=== PATIENT | female | born 1995 | race Caucasian/White ===

== ENCOUNTER → 2016-06-02 | Outpatient (CLI) | payer BC ==
[2016-06-02 13:23] LABS: BASO % 0.3 % (0.0-1.0); EOS # 0.1 K/mm3 (0.0-0.50); EOS % 0.9 % (0.0-3.0); LARGE UNSTAINED CELL # 0.2 K/mm3 (0.0-0.4); LARGE UNSTAINED CELL % 1.6 % (0.0-4.0); LYMPH # 2.4 K/mm3 (1.5-6.5); LYMPH % 25.9 % (24.0-44.0); MEAN CORPUSCULAR HGB CONC 33.3 g/dl (32.0-36.5); MEAN CORPUSCULAR VOLUME 93.2 fl (80.0-96.0); MONO # 0.5 K/mm3 (0.0-0.8); MONO % 5.2 % (0.0-5.0); NEUTROPHILS # 6.2 K/mm3 (1.8-7.7); NEUTROPHILS % 66.1 % (36.0-66.0); PLATELET COUNT, AUTOMATED 216 k/mm3 (150-450); RED CELL DISTRIBUTION WIDTH 11.8 % (11.5-14.5); WHITE BLOOD COUNT 9.3 K/mm3 (4.0-10.0)
[2016-06-02 14:26] LABS: HIV SCRN NEGATIVE (NEGATIVE); HIV SCRN1 NEGATIVE (NEGATIVE)
[2016-06-02 14:27] LABS: CONTROL LINE INT CTR LINE PRESENT
[2016-06-03 11:02] LABS: HBsAg Prenatal NEGATIVE (NEGATIVE)
== END ==
LOC: M SMT 11:24
PROVIDERS: ATTEND Advanced Practice Midwife
DX: Z34.81 Encounter for supervision of other normal pregnancy, first trimester (principal)

== ENCOUNTER → 2016-07-06 | Outpatient (REF) | payer BC | LOC: M LAB REF 16:03 | PROVIDERS: ATTEND Advanced Practice Midwife | DX: Z34.82 Encounter for supervision of other normal pregnancy, second trimester (principal) ==

== ENCOUNTER → 2016-08-04 | Outpatient (CLI) | payer OTHER ==
--- NOTE | 2016-08-05 04:42 | REP ---
Clinical: Anatomical evaluation. Comparison: None . Findings: Examination demonstrates a single live intrauterine in breech presentation. motion is identified by technologist. Placenta is noted anteriorly and grade zero without evidence for placenta previa or abruption. Amniotic fluid volume is normal. Cervix measures 4.1 cm in length and appears closed. No evidence for nuchal cord. Gestational age by LMP 18 weeks 3 days with ISABELA 01/02/2017. Gestational age by current measurements 18 weeks 5 days with ISABELA 12/31/2016 . FHR equals 144 beats per minute. BPD 4.1 cm 18 weeks 4 days HC 15.6 cm 18 weeks 4 days AC 13.4 cm 18 weeks 6 days FL 3.0 cm 19 weeks 2 days HL 2.8 18 weeks 6 days HC/AC ratio 1.17 Estimated weight 267 grams ( 60th percentile). Anatomical assessment demonstrates normal structures including cranium, choroid plexus, cavum, cerebellum/posterior fossa, lungs, diaphragm, stomach, cord insertion, kidneys/bladder, spine, and extremities. Limited evaluation of the facial features, heart/ventricular outflow tract, and three-vessel cord due to positioning. Impression: Single live intrauterine in breech presentation demonstrating appropriate interval growth. Anatomical limitations as described above may warrant reevaluation and follow-up. Signed by Reji Tabares MD 08/05/2016 04:32 A
== END ==
LOC: M SMT 12:56
PROVIDERS: ATTEND Advanced Practice Midwife
DX: Z36 Encounter for antenatal screening of mother (principal); Z3A.18 18 weeks gestation of pregnancy

== ENCOUNTER → 2016-09-11 | Outpatient (CLI) | payer OTHER ==
--- NOTE | 2016-09-11 18:43 | REP ---
Obstetric sonography: History: Supervision of . Followup anatomy. Comparison sonography August 04, 2016. Findings: Scanning through the gravid uterus demonstrates a viable single intrauterine gestation in a cephalic lie. motion is observed and heart rate is recorded at 153 beats per minute. The placenta is anterior without evidence of previa, grade zero. Amniotic fluid is subjectively normal. Closed cervical length is 4.4 cm. No extrauterine abnormalities observed. There has been appropriate interval growth. Exam quality was inhibited by maternal body habitus and position. The following anatomic structures are identified today and felt to be unremarkable: cranium, choroid plexus, cavum, cerebellum and posterior fossa, face and profile, lungs, four-chamber heart with left ventricular outflow tract view, diaphragm, left-sided stomach, three-vessel cord, kidneys and bladder, spine, upper and lower extremities. Right ventricular cardiac outflow tract is not seen due to lie and maternal body habitus. Biometry chart: BPD 6.2 cm = 25 weeks 1 day HC 22.2 cm = 24 weeks 2 days AC 20.4 cm = 25 weeks 0 days FL 4.5 cm = 24 weeks 5 days HL 4.2 cm = 25 weeks 1 day HC/AC ratio normal 1.09. Cephalic index normal 0.79. Estimated weight 735 grams 1 pound 10 ounces, 72nd percentile for 23 weeks 6 days. Impression: Viable single intrauterine gestation at 24 weeks 3 days by today's composite sonographic criteria. Expected gestational age estimate based on prior sonography is 23 weeks 6 days. ISABELA by prior sonography January 02, 2017. There is appropriate interval growth. anatomic survey is complete with the exception of right ventricular cardiac outflow tract view. Signed by Austen Mckeon MD 09/11/2016 07:00 P
== END ==
LOC: M SMT 14:01
PROVIDERS: ATTEND Advanced Practice Midwife
DX: Z34.82 Encounter for supervision of other normal pregnancy, second trimester (principal); Z3A.24 24 weeks gestation of pregnancy

== ENCOUNTER → 2016-10-14 | Outpatient (CLI) | payer OTHER ==
[~2016-10-14] MED LIST: IBUP-1114 PO; PRENTAB7 PO; TUMS750C20 PO; TYLE500T78 PO
[2016-10-14 12:29] LABS: MEAN CORPUSCULAR HEMOGLOBIN 33.6 pg (27.0-33.0); MEAN CORPUSCULAR HGB CONC 34.5 g/dl (32.0-36.5); MEAN CORPUSCULAR VOLUME 97.4 fl (80.0-96.0); RED CELL DISTRIBUTION WIDTH 12.1 % (11.5-14.5); WHITE BLOOD COUNT 10.8 K/mm3 (4.0-10.0)
== END ==
LOC: M SMT 08:11
PROVIDERS: ATTEND Advanced Practice Midwife
DX: Z34.82 Encounter for supervision of other normal pregnancy, second trimester (principal)

== ENCOUNTER → 2016-10-28 | Outpatient (CLI) | payer OTHER ==
--- NOTE | 2016-10-28 10:12 | REP ---
Followup OB ultrasound: 10/28/2016. Clinical history: Supervision of , second trimester. Comparison: 09/11/2016, 08/04/2016. Findings: There is a single intrauterine gestation in vertex position with a closed 3.4 cm long cervix. There is an anterior grade 1 placenta without previa or abruption. Visually the amniotic fluid is normal and the index measurement is 8.3 which is below the normal range of 8.9 - 23.6. The largest fluid pocket 5.8 cm. biometry: BPD 8.1 cm = 32 weeks 3 days HC 28.9 cm = 31 weeks 6 days AC 27.3 cm = 31 weeks 3 days FL 6 cm = 31 weeks 3 days HL 5.2 cm = 30 weeks 3 days. This gives the average ultrasound age of 31 weeks 2 days with EDC 12/28/2016. By initial ultrasound she is 30 weeks 4 days with EDC 01/12. Estimated weight 1785 grams or 3 pounds 14 ounces. This is at 62 percentile for dating based on initial ultrasound. Normal interval growth. Mid cord umbilical artery Doppler S/D ratio 2.42 with a normal range 2.5 - 3.5 so just below the normal range with resistive index 0.59, normal. heart rate 153 and regular. Cranial vault, profile and facial views, lungs, diaphragm, left-sided stomach bubble, three-vessel cord, kidneys and bladder are all seen and unremarkable. Impression: 1. Single intrauterine gestation in vertex presentation with closed 3.4 cm long cervix, anterior grade 1 placenta without previa abruption and normal interval growth. 2. The KOBY is 8.3 which is slightly below the normal range of 8.9 - 23.6. The largest fluid pocket is 5.8 cm and visually the fluid appears adequate. This could be followed. 3. Heart rate 153 and regular limited anatomical structures visible were grossly unremarkable. I would note that the right ventricular outflow tract is still not visible and has never been adequately evaluated during this due to lie. Signed by Meng Smith MD 10/28/2016 07:03 P
== END ==
LOC: M SMT 07:54
PROVIDERS: ATTEND Specialist
DX: Z34.82 Encounter for supervision of other normal pregnancy, second trimester (principal)

== ENCOUNTER → 2016-12-03 | Outpatient (REF) | payer OTHER | LOC: M LAB REF 13:17 | PROVIDERS: ATTEND Specialist | DX: Z34.83 Encounter for supervision of other normal pregnancy, third trimester (principal) ==

== ENCOUNTER 2016-12-16 21:06 | Outpatient (CLI) | payer OTHER ==
[~2016-12-16] VITALS: Ht 165.1 cm; Wt 106.0 kg
[2016-12-16 21:22] VITALS: BP 168/89
[2016-12-16 21:40] VITALS: BP 130/73
[2016-12-16] MEDS ORDERED: PRENTAB7 PO (21:41)
[2016-12-16] MEDS ORDERED: TYLE500T78 PO (21:45)
[2016-12-16] MEDS ORDERED: TUMS750C20 PO (21:45)
[2016-12-16 22:55] VITALS: BP 126/70
== END 2016-12-16 23:45 | disposition home or self-care (01) ==
LOC: M LDO 21:06
PROVIDERS: ATTEND Specialist
DX: O26.893 Other specified pregnancy related conditions, third trimester (principal); N89.8 Other specified noninflammatory disorders of vagina; Z3A.37 37 weeks gestation of pregnancy; Z91.018 Allergy to other foods; Z91.040 Latex allergy status

== ENCOUNTER 2016-12-30 01:49 | Inpatient (IN) | payer OTHER ==
[~2016-12-30] VITALS: Ht 165.1 cm; Wt 107.0 kg
[2016-12-30] VITALS (49 sets, daily range): BP systolic 93–134; BP diastolic 51–88
[~2016-12-30 01:49] MED LIST changes: -IBUP-1114 PO
[2016-12-30] MEDS ORDERED: LACTATED RINGER'S 1000 ML IV STA (02:19)
[2016-12-30] MEDS ORDERED: LR 1,000 ML IV SCH (02:19)
[2016-12-30 02:28] LABS: MEAN CORPUSCULAR HEMOGLOBIN 30.7 pg (27.0-33.0); MEAN CORPUSCULAR HGB CONC 34.2 g/dl (32.0-36.5); MEAN CORPUSCULAR VOLUME 89.9 fl (80.0-96.0); RED CELL DISTRIBUTION WIDTH 13.2 % (11.5-14.5); WHITE BLOOD COUNT 17.3 10^3/uL (4.0-10.0)
[2016-12-30] MEDS ORDERED: FENTANYL 2MCG/ML ROPIVACAINE 0.2% IN 0.9% NACL 200ML IVBAG As Ordered ONE (02:40)
[2016-12-30] MEDS ORDERED: LACTATED RINGER'S 1000 ML IV PRN (02:41)
[2016-12-30] MEDS ORDERED: NALOXONE INJ 0.4 MG/1 ML VIAL (J2310) IV PRN (02:41)
[2016-12-30] MEDS ORDERED: ePHEDrine SULFATE 25 MG/5 ML(5MG/ML) SYRINGE IV PRN (02:41)
[2016-12-30] MEDS ORDERED: REFRIGERATOR IV KEYS XX PRN (02:41)
[2016-12-30] MEDS ORDERED: EPIDURAL COMMENT XX SCH (02:41)
[2016-12-30] MEDS ORDERED: EPIDURAL/PCA KEYS XX PRN (02:41)
[2016-12-30] MEDS ORDERED: ONDANSETRON 4MG/2ML VIAL (J2405) IV PRN (02:41)
[2016-12-30] MEDS ORDERED: diphenhydrAMINE INJ 50MG/ML VIAL (J1200) IV PRN (02:41)
[2016-12-30] MEDS ORDERED: FENTANYL/ROPIVACAINE/NACL BAG 200 ML EPIDURAL SCH (02:41)
--- NOTE | 2016-12-30 05:14 | HPE ---
DATE OF ADMISSION: 12/30/2016 HISTORY OF PRESENT ILLNESS: Marybeth is a 21-year-old one, para zero at 39-4/7 weeks gestation with an estimated date of confinement (EDC) of 01/02/2017, based on last menstrual period and confirmed by first trimester ultrasound. She presents to labor and delivery today with report of onset of uncomfortable contractions that became much closer and stronger at approximately 00:00. She denies vaginal bleeding and leakage of fluid. The fetus has been active. care initiated at [facility] in the first trimester. course uncomplicated. OBSTETRIC HISTORY: [facility]: A positive, antibody screen negative. ASCUS positive HPV Pap smear, rubella immune, VDRL nonreactive. Urine culture no growth. Hepatitis B surface antigen negative. HIV negative. Hepatitis C antibody negative. Gonorrhea and chlamydia negative. She did decline genetic serum screening markers. Gestational diabetic screening 90, and her GBS is negative. PAST MEDICAL HISTORY: 1. Childhood asthma. 2. Positive HPV. 3. Abnormal Pap smears. SURGERIES: Colposcopy times two. FAMILY HISTORY: Noncontributory. SOCIAL HISTORY: The patient is . She is a nonsmoker. Denies alcohol and drug use. History positive HPV. Denes history of abuse, physical, sexual and emotional. ALLERGIES: No known drug allergies. CURRENT MEDICATIONS: Include only vitamins. OBJECTIVE: She is tense and crying with her contractions. Temperature 99.2, pulse 62, respirations have not been recorded. Blood pressure is 131/88. heart rate 155, moderate variability, positive accelerations. Positive occasional variable deceleration. She is tony approximately every 2-3 minutes. Abdomen is gravid. Cephalic presentation. Estimated weight eight pounds. Sterile vaginal exam: 6 cm dilated, 90% effaced, -2 station. ASSESSMENT: Intrauterine at 39 and 4/7 weeks. Active labor. PLAN: Admit patient to labor and delivery. Labs. Out of bed as desired (ad german). Desires an epidural for her labor coping, so intravenous (IV) fluid bolus. I do anticipate continued labor progress and a normal spontaneous vaginal delivery.
[2016-12-30] MEDS ORDERED: OXYTOCIN DRIP 30 UNITS in APPROPRIATE DILUENT 1 EA IV SCH (08:45)
[2016-12-30] MEDS ORDERED: PRENATAL VITAMINS CHEWABLE TABLET PO SCH (09:00)
[2016-12-30 10:24] LABS: CORD GAS ABE A -9.9; CORD GAS HCO3 A 18.5 MEQ/L; CORD GAS O2 SAT A 66.6 %; CORD GAS PCO2 A 50.4 mmHg; CORD GAS PH A 7.183 UNITS; CORD GAS PO2 A 33.7 mmHg; CORD GAS TCO2 A 20.1 MEQ/L
[2016-12-30 10:25] LABS: CORD GAS ABE V -3.3; CORD GAS HCO3 V 20.4 MEQ/L; CORD GAS O2 SAT V 73.4 %; CORD GAS PCO2 V 32.9 mmHg; CORD GAS PH V 7.41 UNITS; CORD GAS PO2 V 31.3 mmHg; CORD GAS SBC V 21.2 MEQ/L; CORD GAS TCO2 V 21.4 MEQ/L
[2016-12-30] MEDS ORDERED: DIBUCAINE 1% OINTMENT 30GM TOP PRN (10:45)
[2016-12-30] MEDS ORDERED: DOCUSATE SODIUM 100 MG CAP PO PRN (10:45)
[2016-12-30] MEDS ORDERED: ANUSOL HC CREAM 30GM TOP PRN (10:45)
[2016-12-30] MEDS ORDERED: RHOGAM 300 MCG (1500 IU) INJ (J2790) IM SCH (10:45)
[2016-12-30] MEDS ORDERED: METHYLERGONOVINE MALEATE 0.2 MG TAB PO PRN (10:45)
[2016-12-30] MEDS ORDERED: MEASLES,MUMPS,RUBELLA VACCINE INJ (MMR-II) (90707) SC SCH (10:45)
[2016-12-30] MEDS ORDERED: MOM 30ML SUSPENSION UDC PO PRN (10:45)
--- NOTE | 2016-12-30 10:53 | IPNPDOC ---
Text Note Date of Service The patient was seen on 12/30/16. NOTE Delivery Note Date of Service 12/30/2016 21 year old 1, para 1001, spontaneous onset of labor at 39 weeks and 4 days. Artificial rupture of membranes December 30 at 0702, clear, moderate amount. Utilized epidural for labor coping. Fully dilated, 0702. Started pushing effectively with coaching at 0910. Viable female delivered ADALBERTO without difficulty at 1009 after reduction of loose nuchal cord. Spontaneous respirations with stimulation. Transitioned on maternal abdomen with blow-by O2. Cord doubly clamped and cut by father of the baby under my direction once pulsations ceased. scores 8 and 9. Cord gases obtained, arterial 7.183 with base excess -9.9 and venous 7.410 with base excess of -3.3. Placenta Pollack intact with 3-vessel cord at 1016. Fundus firmed with massage and intravenous pitocin bolus. Estimated blood loss 300 mL. Perineum, cervix and vagina inspected. Second-degree perineal laceration noted, repaired with 3- 0 Vicryl Rapide. Left labial abrasion repaired with 1 stitch of the same suture. Sponge, sharp and instrument count correct. weight 8 pounds 7 ounces, 3820 grams. Parents are naming their baby girl Hernandez. VS,Fishbone, I+O VS, Fishbone, I+O Laboratory Tests 12/30/16 02:15 Red Blood Count 4.07, Mean Corpuscular Volume 89.9, Mean Corpuscular Hemoglobin 30.7, Mean Corpuscular Hemoglobin Concent 34.2, Red Cell Distribution Width 13.2 Vital Signs Date Time Temp Pulse Resp B/P (MAP) Pulse Ox O2 Delivery O2 Flow Rate FiO2 12/30/16 10:26 122 114/60 (78) 12/30/16 10:26 18 12/30/16 07:42 99.0 I&O- Last 24 Hours up to 6 AM 12/31/16 06:00 Intake Total 5898 ml Output Total 1415 ml Balance 4483 ml Ghislaine Fernandez CNM Dec 30, 2016 10:53
[2016-12-30] MEDS ORDERED: CALCIUM CARBONATE 500 MG CHEW U/D PO PRN (11:00)
[2016-12-30] MEDS: diphenhydrAMINE 25 MG CAP PO PRN (12:56)
[2016-12-30] MEDS: ACETAMINOPHEN 500 MG TAB PO PRN ×2 (12:56→21:01)
[2016-12-30] MEDS: IBUPROFEN 800 MG TAB PO PRN (16:49)
[2016-12-31] MEDS: IBUPROFEN 800 MG TAB PO PRN ×5 (00:18→23:43)
[2016-12-31] MEDS: diphenhydrAMINE 25 MG CAP PO PRN ×3 (00:50→22:33)
[2016-12-31 01:02] VITALS: BP 146/74
[2016-12-31 06:26] VITALS: BP 136/92
--- NOTE | 2016-12-31 06:33 | IPNPDOC ---
Text Note Date of Service The patient was seen on 12/31/16. NOTE Reports adequate pain management. on demand. Unable to void after straight cath last nite. Swan placed overnight, removed this am. Pt reports increased ability to feel bladder status now. 97.2, BP 146/74 and 136/92 Breasts soft, nipples intact Fundus firm, NT down 1 FB Lochia rubra light without odor Perineum well approximated without edema A: PPD #1, mild hypertension, inability to void P: Preeclamptic panel ordered. Reviewed bladder training starting at 2 hours then hourly. VS,Fishbone, I+O VS, Fishbone, I+O Vital Signs Date Time Temp Pulse Resp B/P (MAP) Pulse Ox O2 Delivery O2 Flow Rate FiO2 12/31/16 06:26 97.2 110 18 136/92 (107) Room Air 12/31/16 01:02 97 Ghislaine Fernandez CNM Dec 31, 2016 06:33
[2016-12-31 06:58] LABS: MEAN CORPUSCULAR HEMOGLOBIN 30.3 pg (27.0-33.0); MEAN CORPUSCULAR HGB CONC 33.1 g/dl (32.0-36.5); MEAN CORPUSCULAR VOLUME 91.5 fl (80.0-96.0); RED CELL DISTRIBUTION WIDTH 13.2 % (11.5-14.5); WHITE BLOOD COUNT 12.8 10^3/uL (4.0-10.0)
[2016-12-31 07:18] LABS: ALBUMIN 2.2 GM/DL (3.2-5.2); ALBUMIN/GLOBULIN RATIO 0.59 (1.00-1.93); ALKALINE PHOSPHATASE 99 U/L (45-117); ALT/SGPT 15 U/L (12-78); ANION GAP 10 MEQ/L (8-16); AST/SGOT 20 U/L (15-37); BILIRUBIN,DIRECT < 0.1 MG/DL (0.0-0.2); BILIRUBIN,TOTAL 0.2 MG/DL (0.2-1.0); BLOOD UREA NITROGEN 9 MG/DL (7-18); CALCIUM LEVEL 8.4 MG/DL (8.5-10.1); CARBON DIOXIDE LEVEL 23 MEQ/L (21-32); CHLORIDE LEVEL 108 MEQ/L (98-107); CREATININE FOR GFR 0.69 MG/DL (0.55-1.02); GLOMERULAR FILTRATION RATE > 60.0 (>60); GLUCOSE, FASTING 79 MG/DL (70-105); POTASSIUM SERUM 3.9 MEQ/L (3.5-5.1); SODIUM LEVEL 141 MEQ/L (136-145); TOTAL PROTEIN 5.9 GM/DL (6.4-8.2)
[2016-12-31] MEDS: ACETAMINOPHEN 500 MG TAB PO PRN ×2 (08:38→17:43)
[2016-12-31 18:00] VITALS: BP 132/86
[2017-01-01] MEDS: ACETAMINOPHEN 500 MG TAB PO PRN ×2 (03:03→10:49)
[2017-01-01 06:02] VITALS: BP 141/80
[2017-01-01 08:10] LABS: MEAN CORPUSCULAR HGB CONC 33.6 g/dl (32.0-36.5); MEAN CORPUSCULAR VOLUME 92.1 fl (80.0-96.0); RED CELL DISTRIBUTION WIDTH 13.4 % (11.5-14.5); WHITE BLOOD COUNT 11.5 10^3/uL (4.0-10.0)
[2017-01-01] MEDS: IBUPROFEN 800 MG TAB PO PRN (08:13)
[2017-01-01 08:32] LABS: ALBUMIN 2.4 GM/DL (3.2-5.2); ALBUMIN/GLOBULIN RATIO 0.75 (1.00-1.93); ALKALINE PHOSPHATASE 90 U/L (45-117); ALT/SGPT 18 U/L (12-78); ANION GAP 8 MEQ/L (8-16); AST/SGOT 19 U/L (15-37); BILIRUBIN,TOTAL 0.2 MG/DL (0.2-1.0); BLOOD UREA NITROGEN 8 MG/DL (7-18); CALCIUM LEVEL 7.8 MG/DL (8.5-10.1); CARBON DIOXIDE LEVEL 24 MEQ/L (21-32); CHLORIDE LEVEL 108 MEQ/L (98-107); CREATININE FOR GFR 0.55 MG/DL (0.55-1.02); GLOMERULAR FILTRATION RATE > 60.0 (>60); GLUCOSE, FASTING 77 MG/DL (70-105); POTASSIUM SERUM 3.9 MEQ/L (3.5-5.1); SODIUM LEVEL 140 MEQ/L (136-145); TOTAL PROTEIN 5.6 GM/DL (6.4-8.2); URIC ACID 5.4 MG/DL (2.6-6.0)
[2017-01-01] MEDS: diphenhydrAMINE 25 MG CAP PO PRN (09:05)
[2017-01-01 10:00] VITALS: BP 136/73
[2017-01-01] MEDS ORDERED: IBUP-1114 PO (13:34)
[2017-01-01 14:05] VITALS: BP 155/84
[2017-01-01 14:33] LABS: CALCIUM OXALATE CRYSTALS SMALL
== END 2017-01-01 11:45 | disposition home or self-care (01) | DRG 774 ==
LOC: M LDO 01:49 → M LDI 02:13 → M OBS 13:21
PROVIDERS: ADMIT Advanced Practice Midwife; ATTEND Advanced Practice Midwife
PROC: 10E0XZZ Delivery of Products of Conception, External Approach (ICD-10-PCS; principal; 2016-12-30)
PROC: 10907ZC Drainage of Amniotic Fluid, Therapeutic from Products of Conception, Via Natural or Artificial Opening (ICD-10-PCS; 2016-12-30)
PROC: 0HQ9XZZ Repair Perineum Skin, External Approach (ICD-10-PCS; 2016-12-30)
DX: O69.82X0 Labor and delivery complicated by other cord entanglement, without compression, not applicable or unspecified (principal); O98.52 Other viral diseases complicating childbirth; Z37.0 Single live birth; Z3A.39 39 weeks gestation of pregnancy; R87.810 Cervical high risk human papillomavirus (HPV) DNA test positive; Z79.899 Other long term (current) drug therapy; O70.0 First degree perineal laceration during delivery

== ENCOUNTER → 2017-03-15 | Outpatient (REF) | payer OTHER ==
[~2017-03-15] MED LIST changes: +IBUP-1114 PO
== END ==
LOC: M LAB REF 17:27
PROVIDERS: ATTEND Advanced Practice Midwife
DX: Z01.419 Encounter for gynecological examination (general) (routine) without abnormal findings (principal); Z11.51 Encounter for screening for human papillomavirus (HPV); R85.610 Atypical squamous cells of undetermined significance on cytologic smear of anus (ASC-US)